=== PATIENT | male | born 1985 | race Caucasian/White ===

== ENCOUNTER 2020-10-26 01:12 | Emergency (ER) | payer OTHER ==
[~2020-10-26] VITALS: Ht 188 cm; Wt 83.9 kg
[2020-10-26] MEDS ORDERED: IV NORMAL SALINE 1000 ML BAG IV ONE (01:45)
[2020-10-26] MEDS ORDERED: diphenhydrAMINE 50 MG/1 ML VIAL IV ONE (01:45)
[2020-10-26] MEDS ORDERED: METOCLOPRAMIDE HCL 10 MG/2 ML VIAL IV ONE (01:45)
[2020-10-26] MEDS ORDERED: ACETAMINOPHEN ES 500 MG TABLET PO ONE (01:45)
--- NOTE | 2020-10-26 01:45 | NUR ---
PT C/O [place] X3 MONTHS, PER REPORT HIS PMD IS AWARE BUT TODAY WAS MUCH WORSE. PT NEUROLOGIST PRESCRIBED HIM AJOVY 225MG SUB-Q, PT STATES HE TOOK IT AT 11AM 10/25/20. STEADY GAIT. A/O X4, NO SOB OR LABORED BREATHING, AFEBRILE. CLEAR SPEECH, COMPLETE SENTENCES. DR. ZHENG AT BEDSIDE, MSE IN PROGRESS.
[2020-10-26] MEDS ORDERED: KETOROLAC TROMETHAMINE 30 MG INJ IVP ONE (02:00)
[2020-10-26] MEDS ORDERED: ACETAMINOPHEN ES 500 MG TABLET ONE (02:16)
[2020-10-26] MEDS ORDERED: KETOROLAC TROMETHAMINE 30 MG INJ ONE (02:16)
[2020-10-26] MEDS ORDERED: diphenhydrAMINE 50 MG/1 ML VIAL ONE (02:16)
[2020-10-26] MEDS ORDERED: METOCLOPRAMIDE HCL 10 MG/2 ML VIAL ONE (02:17)
[2020-10-26 02:31] LABS: MEAN CORPUSCULAR HEMOGLOBIN 27.3 uug (23.8-33.4); PLATELET COUNT (AUTO) 297 K/uL (152-348); POTASSIUM 3.7 mmol/L (3.5-5.1)
[2020-10-26 02:33] LABS: BILIRUBIN,DIRECT 0.1 mg/dL (0.0-0.2); BILIRUBIN,TOTAL 0.6 mg/dL (0.2-1.0); PHOSPHOROUS 3.8 mg/dL (2.5-4.9)
--- NOTE | 2020-10-26 03:12 | NUR ---
Patient discharged to home in stable condition. No changes in LOC. Denies any pain/discomfort upon discharge. Written and verbal after care instructions given. Patient verbalizes understanding of instructions. Stressed follow up or return to ER for worsening s/s. Steady gait. Picked up by family.
[2020-10-26 03:28] VITALS: BP 128/77
== END 2020-10-26 03:15 | disposition home or self-care (01) ==
LOC: ER 01:18
DX: R51.9 Headache, unspecified (principal)
CPT/HCPCS: 36415; 80048; 80076; 83735; 84100; 85025; 96361; 96374; 96375; 99284; J1200; J1885; J2765; A4663; A9150; J7030